=== PATIENT | male | born 1970 | race Caucasian/White ===

== ENCOUNTER 2019-11-10 08:09 | Emergency (ER) | payer SELFPAY ==
[~2019-11-10] VITALS: Ht 167.6 cm; Wt 102.3 kg
[~2019-11-10 08:09] MED LIST: AMOXICILLIN 50500 MG PO; FLEXERIL 1010 MG/TAB PO; LORTAB 5/500 501 TAB PO; MECLIZINE HCL25 M1 PO; MOTRIN 800800 MG/TAB PO; NO HOME MEDICATIONS; OMNICEF 300MG300 MG PO; TYLENOL 325MG325 MG PO; ULTRAM 50MG TAB50 MG PO
[2019-11-10 08:17] VITALS: TEMP 97.9
[2019-11-10 09:11] LABS: BASO % 0.5 % (0.0-2.0); EOS # 0.1 (0.0-0.7); EOS % 2.3 % (0-4.0); GRAN # 2.6 (1.4-6.5); HEMATOCRIT 49.5 % (42.0-52.0); HEMOGLOBIN 16.3 g/dl (13.5-18.0); LYMPH # 2.4 (1.2-3.4); LYMPH % 42.7 % (20.0-51.0); MEAN CELL VOLUME 90 fl (80.0-100.0); MEAN CORPUSCULAR HEMOGLOBIN 30 pg (27.0-31.0); MEAN CORPUSCULAR HGB CONC 33 g/dl (33.0-37.0); MEAN PLATELET VOLUME 9.2 fl (7.4-10.4); MONO # 0.5 (0.1-0.6); MONO % 8.3 % (1.7-9.3); PLATELET COUNT 187 K/mm3 (130-400); RED BLOOD COUNT 5.49 M/mm3 (4.20-5.60); REDCELL DISTRIBUTION WIDTH-CV 13.2 % (11.5-14.5)
[2019-11-10 09:22] LABS: ALANINE AMINOTRANSFERASE 28 U/L (21-72); ALBUMIN 4.4 gm/dL (3.5-5.0); ALKALINE PHOSPHATASE 90 U/L (50-136); ANION GAP 9 mmol/L (7-16); AST,SGOT 27 U/L (15-37); BILIRUBIN,TOTAL 0.4 mg/dL (0.0-1.0); BLOOD UREA NITROGEN 16 mg/dL (9-20); C-REACTIVE PROTEIN 0.8 mg/dL (0.0-0.9); CALCIUM 8.9 mg/dL (8.4-10.2); CARBON DIOXIDE 26 mmol/L (22-30); CHLORIDE 105 mmol/L (98-107); CREATININE, serum 0.69 (0.66-1.25); GLUCOSE 111 mg/dL (74-106); POTASSIUM 4.1 mmol/L (3.4-5.0); SODIUM 140 mmol/L (137-145); TOTAL PROTEIN 7.6 gm/dL (6.4-8.2)
[2019-11-10 09:31] LABS: TROPONIN-I < 0.012 ng/mL (0.000-0.035)
[2019-11-10] MEDS ORDERED: AMOXICILLIN 8751 TAB PO (11:20)
[2019-11-10 11:44] VITALS: BP 111/91; PULSE 61
== END 2019-11-10 11:46 | disposition home or self-care (01) ==
LOC: COL.ER 08:09
PROVIDERS: Physician Assistant
DX: J32.9 Chronic sinusitis, unspecified (principal); R42 Dizziness and giddiness; F17.210 Nicotine dependence, cigarettes, uncomplicated; Z90.89 Acquired absence of other organs
CPT/HCPCS: J7030

== ENCOUNTER 2019-12-06 10:39 | Emergency (ER) | payer SELFPAY ==
[~2019-12-06] VITALS: Ht 167.6 cm; Wt 100.0 kg
[~2019-12-06 10:39] MED LIST changes: +AMOXICILLIN 8751 TAB PO
[2019-12-06 10:49] VITALS: TEMP 98
[2019-12-06] MEDS ORDERED: FLEXERIL 1010 MG/TAB PO (12:45)
[2019-12-06 13:25] VITALS: BP 155/87; PULSE 69
== END 2019-12-06 13:27 | disposition home or self-care (01) ==
LOC: COL.ER 10:39
DX: M54.42 Lumbago with sciatica, left side (principal); F17.210 Nicotine dependence, cigarettes, uncomplicated
CPT/HCPCS: J1885

== ENCOUNTER 2020-04-12 14:01 | Emergency (ER) | payer SELFPAY ==
[~2020-04-12] VITALS: Ht 170.2 cm; Wt 109.1 kg
[2020-04-12 14:05] VITALS: TEMP 98.4
[2020-04-12 14:42] LABS: BASO # 0.1 (0.0-0.2); BASO % 0.7 % (0.0-2.0); EOS # 0.2 (0.0-0.7); GRAN # 4.7 (1.4-6.5); GRAN % 58.2 % (42.2-75.2); HEMATOCRIT 49.4 % (42.0-52.0); HEMOGLOBIN 16.8 g/dl (13.5-18.0); LYMPH # 2.5 (1.2-3.4); MEAN CELL VOLUME 89 fl (80.0-100.0); MEAN CORPUSCULAR HEMOGLOBIN 30 pg (27.0-31.0); MEAN CORPUSCULAR HGB CONC 34 g/dl (33.0-37.0); MEAN PLATELET VOLUME 8.9 fl (7.4-10.4); MONO # 0.6 (0.1-0.6); MONO % 7.9 % (1.7-9.3); PLATELET COUNT 197 K/mm3 (130-400); RED BLOOD COUNT 5.57 M/mm3 (4.20-5.60); REDCELL DISTRIBUTION WIDTH-CV 13.1 % (11.5-14.5)
[2020-04-12 14:53] LABS: C-REACTIVE PROTEIN 0.9 mg/dL (0.0-0.9); CREATININE, serum 0.98 (0.66-1.25); POTASSIUM 3.8 mmol/L (3.4-5.0); URIC ACID 7.1 mg/dL (3.5-8.5)
[2020-04-12] MEDS ORDERED: CELEBREX 200MG200 MG (15:04)
[2020-04-12] MEDS ORDERED: GRALISE300 MG PO (15:04)
[2020-04-12] MEDS ORDERED: NORCO 325 MG-51 TAB PO (15:19)
[2020-04-12] MEDS ORDERED: MEDROL 4MG DOSPA4 MG PO (15:19)
[2020-04-12 15:25] VITALS: PULSE 74
== END 2020-04-12 15:25 | disposition home or self-care (01) ==
LOC: COL.ER 14:01
PROVIDERS: Physician Assistant
DX: M79.645 Pain in left finger(s) (principal); Z90.89 Acquired absence of other organs

== ENCOUNTER → 2020-08-08 | Outpatient (CLI) | payer SELFPAY ==
[~2020-08-08] MED LIST changes: +CELEBREX 200MG200 MG; +GRALISE300 MG PO; +MEDROL 4MG DOSPA4 MG PO; +NORCO 325 MG-51 TAB PO
== END ==
LOC: MHCPAIN 09:08
DX: M47.817 Spondylosis without myelopathy or radiculopathy, lumbosacral region (principal); M25.551 Pain in right hip; M54.5 Low back pain; M53.3 Sacrococcygeal disorders, not elsewhere classified; G89.29 Other chronic pain; F17.210 Nicotine dependence, cigarettes, uncomplicated
CPT/HCPCS: G0463

== ENCOUNTER → 2020-08-08 | Outpatient (CLI) | payer SELFPAY | LOC: COL.RAD 10:20 | DX: M47.896 Other spondylosis, lumbar region (principal); M43.17 Spondylolisthesis, lumbosacral region ==

== ENCOUNTER → 2021-02-13 | Outpatient (CLI) | payer OTHER | LOC: COL.RAD 08:51 | DX: M19.012 Primary osteoarthritis, left shoulder (principal) ==

== ENCOUNTER → 2021-04-01 | Outpatient (CLI) | payer OTHER | LOC: COL.RAD 07:48 | DX: M47.896 Other spondylosis, lumbar region (principal) ==

== ENCOUNTER 2022-01-15 06:35 | Emergency (ER) | payer OTHER ==
[~2022-01-15] VITALS: Ht 167.6 cm; Wt 109.1 kg
[2022-01-15 06:42] VITALS: TEMP 97.9
[2022-01-15 07:23] LABS: COLLECTION METHOD CLEAN CATCH
[2022-01-15 07:30] LABS: BASO # 0.1 K/mm3 (0.0-0.2); BASO % 0.7 % (0.0-2.0); EOS # 0.1 K/mm3 (0.0-0.7); GRAN # 3.6 K/mm3 (1.4-6.5); GRAN % 50.5 % (42.2-75.2); HEMATOCRIT 48.8 % (42.0-52.0); HEMOGLOBIN 16.4 g/dl (13.5-18.0); LYMPH # 2.8 K/mm3 (1.2-3.4); LYMPH % 39.4 % (20.0-51.0); MEAN CELL VOLUME 87 fl (80.0-100.0); MEAN CORPUSCULAR HEMOGLOBIN 29 pg (27-31); MEAN CORPUSCULAR HGB CONC 34 g/dl (33.0-37.0); MEAN PLATELET VOLUME 9.2 fl (7.4-10.4); MONO # 0.5 K/mm3 (0.1-0.6); MONO % 7.1 % (1.7-9.3); PLATELET COUNT 222 K/mm3 (130-400); RED BLOOD COUNT 5.62 M/mm3 (4.20-5.60); REDCELL DISTRIBUTION WIDTH-CV 13.8 % (11.5-14.5)
[2022-01-15 07:44] LABS: ALBUMIN 3.9 gm/dL (3.5-5.0); BILIRUBIN,TOTAL 0.3 mg/dL (0.2-1.2); CALCIUM 8.4 mg/dL (8.4-10.2); CREATININE, serum 0.8 mg/dL (0.72-1.25); POTASSIUM 3.9 mmol/L (3.5-4.5); TOTAL PROTEIN 7.4 gm/dL (6.2-8.1)
[2022-01-15] MEDS ORDERED: NORCO 325 MG-51 TAB PO (08:23)
[2022-01-15 08:54] LABS: PH 6 (5-8); URINE APPEARANCE Clear (CLEAR/HAZY); URINE BILIRUBIN Negative (NEGATIVE); URINE BLOOD Negative (NEGATIVE); URINE COLOR Yellow (YELLOW); URINE GLUCOSE Negative (NEGATIVE); URINE KETONE Negative (NEGATIVE); URINE NITRATE Negative (NEGATIVE); URINE PROTEIN(semi-quant) Negative (NEGATIVE); URINE UROBILINOGEN Negative (NEGATIVE)
[2022-01-15 08:55] LABS: URINE LEUKOCYTE ESTERASE Negative (NEGATIVE)
[2022-01-15 09:05] VITALS: BP 113/78; PULSE 91
== END 2022-01-15 09:05 | disposition home or self-care (01) ==
LOC: COL.ER 06:35
PROVIDERS: Personal Emergency Response Attendant
DX: N50.811 Right testicular pain (principal); M54.9 Dorsalgia, unspecified; Z98.1 Arthrodesis status; Z98.890 Other specified postprocedural states
CPT/HCPCS: J1885; J2270; J2405; J7030

== ENCOUNTER 2022-03-12 16:00 | Emergency (ER) | payer OTHER ==
[~2022-03-12] VITALS: Ht 167.6 cm; Wt 106.8 kg
[2022-03-12 16:28] LABS: BASO # 0.1 K/mm3 (0.0-0.2); BASO % 0.6 % (0.0-2.0); EOS # 0.1 K/mm3 (0.0-0.7); EOS % 0.6 % (0.0-4.0); GRAN # 7.3 K/mm3 (1.4-6.5); HEMOGLOBIN 16.7 g/dl (13.5-18.0); LYMPH # 2.4 K/mm3 (1.2-3.4); MEAN CELL VOLUME 88 fl (80.0-100.0); MEAN CORPUSCULAR HEMOGLOBIN 29 pg (27-31); MEAN CORPUSCULAR HGB CONC 33 g/dl (33.0-37.0); MEAN PLATELET VOLUME 8.9 fl (7.4-10.4); MONO # 0.9 K/mm3 (0.1-0.6); MONO % 8.2 % (1.7-9.3); PLATELET COUNT 268 K/mm3 (130-400); RED BLOOD COUNT 5.68 M/mm3 (4.20-5.60); REDCELL DISTRIBUTION WIDTH-CV 13.8 % (11.5-14.5)
[2022-03-12 16:47] LABS: ALBUMIN 4.4 gm/dL (3.5-5.0); BILIRUBIN,TOTAL 0.5 mg/dL (0.2-1.2); CALCIUM 9.3 mg/dL (8.4-10.2); CREATININE, serum 2.11 mg/dL (0.72-1.25); POTASSIUM 3.6 mmol/L (3.5-4.5); TOTAL PROTEIN 8.3 gm/dL (6.2-8.1)
[2022-03-12 17:07] LABS: TROPONIN-I 0.016 ng/mL (0.00-0.033)
[2022-03-12 17:16] LABS: COLLECTION METHOD CLEAN CATCH
[2022-03-12 17:29] LABS: MUCOUS Present (NOT PRESENT); SQUAMOUS EPITHELIAL 0-2 /hpf (0-10); URINE BACTERIA None Seen /hpf (NONE SEEN); URINE RBC 0-2 /hpf (0-2)
[2022-03-12 17:30] LABS: PH 5 (5-8); URINE APPEARANCE Clear (CLEAR/HAZY); URINE BILIRUBIN Negative (NEGATIVE); URINE BLOOD Negative (NEGATIVE); URINE COLOR Yellow (YELLOW); URINE GLUCOSE Negative (NEGATIVE); URINE KETONE Negative (NEGATIVE); URINE LEUKOCYTE ESTERASE Negative (NEGATIVE); URINE NITRATE Negative (NEGATIVE); URINE PROTEIN(semi-quant) Negative (NEGATIVE); URINE UROBILINOGEN Negative (NEGATIVE)
[2022-03-12 18:40] VITALS: BP 126/87; PULSE 85; TEMP 98.2
== END 2022-03-12 18:41 | disposition left against medical advice (07) ==
LOC: COL.ER 16:00
PROVIDERS: Nurse Practitioner Primary Care
DX: N17.9 Acute kidney failure, unspecified (principal); F17.290 Nicotine dependence, other tobacco product, uncomplicated; Z20.822 Contact with and (suspected) exposure to COVID-19
CPT/HCPCS: J7030

== ENCOUNTER 2024-05-16 07:02 | Emergency (ER) | payer SELFPAY ==
[~2024-05-16] VITALS: Ht 167.6 cm; Wt 113.6 kg
[2024-05-16 07:14] VITALS: TEMP 98.5
[2024-05-16] MEDS ORDERED: Iohexol 300 - 100 ML VIAL IV ONE (08:26)
[2024-05-16] MEDS ORDERED: NS 100 ML IV SCH (08:27)
[2024-05-16 08:30] LABS: BASO # 0.1 K/mm3 (0.0-0.2); BASO % 0.6 % (0.0-2.0); EOS # 0.1 K/mm3 (0.0-0.7); EOS % 1.2 % (0.0-4.0); GRAN # 5.1 K/mm3 (1.4-6.5); GRAN % 62.9 % (42.2-75.2); HEMATOCRIT 46.8 % (42.0-52.0); HEMOGLOBIN 15.8 g/dl (13.5-18.0); LYMPH # 2.1 K/mm3 (1.2-3.4); LYMPH % 26.1 % (20.0-51.0); MEAN CELL VOLUME 89 fl (80.0-100.0); MEAN CORPUSCULAR HEMOGLOBIN 30 pg (27-31); MEAN CORPUSCULAR HGB CONC 34 g/dl (33.0-37.0); MEAN PLATELET VOLUME 9.7 fl (7.4-10.4); MONO # 0.7 K/mm3 (0.1-0.6); PLATELET COUNT 198 K/mm3 (130-400); RED BLOOD COUNT 5.29 M/mm3 (4.20-5.60); REDCELL DISTRIBUTION WIDTH-CV 13.6 % (11.5-14.5)
[2024-05-16 08:49] LABS: ALBUMIN 3.7 g/dL (3.5-5.0); BILIRUBIN,TOTAL 0.5 mg/dL (0.2-1.2); CALCIUM 8.1 mg/dL (8.4-10.2); CREATININE, serum 0.93 mg/dL (0.72-1.25); TOTAL PROTEIN 6.8 g/dl (6.2-8.1)
[2024-05-16] MEDS ORDERED: PERCOCET 325 MG1 TA2 PO (10:19)
[2024-05-16] MEDS ORDERED: MOTRIN 800800 MG/TAB PO (10:19)
[2024-05-16 10:23] VITALS: BP 138/96; PULSE 61
== END 2024-05-16 10:31 | disposition home or self-care (01) ==
LOC: COL.ER 07:02
PROVIDERS: Personal Emergency Response Attendant
DX: S16.1XXA Strain of muscle, fascia and tendon at neck level, initial encounter (principal); S23.3XXA Sprain of ligaments of thoracic spine, initial encounter; S70.12XA Contusion of left thigh, initial encounter; V28.49XA Other motorcycle driver injured in noncollision transport accident in traffic accident, initial encounter; Y93.55 Activity, bike riding
CPT/HCPCS: Q9967